=== PATIENT | female | born 1950 | race Caucasian/White ===

== ENCOUNTER → 2021-02-05 15:05 | Outpatient (BNVA) | payer MEDICARE, BC, SELFPAY | PROVIDERS: Family Provider Family Medicine; PCP Family Medicine; Visit Provider Registered Nurse | DX: M25.561 Pain in right knee (principal); M25.562 Pain in left knee; I10 Essential (primary) hypertension; E78.5 Hyperlipidemia, unspecified | CPT/HCPCS: 80053; 80061; 85025 ==

== ENCOUNTER → 2021-10-23 08:55 | Outpatient (BNVA) | payer MEDICARE, SELFPAY | PROVIDERS: Family Provider Family Medicine; PCP Family Medicine; Referring Provider Family Medicine; Visit Provider Surgery | DX: C20 Malignant neoplasm of rectum (principal) | CPT/HCPCS: 99203 ==

== ENCOUNTER 2021-12-05 08:06 | Day surgery (SDC) | payer MEDICARE, SELFPAY ==
[2021-12-04 14:17] VITALS: BMI 32.9
[2021-12-05 08:56] VITALS: BP 151/81; PULSE 86; RESP 18; TEMP 36.1; O2SAT 97
[2021-12-05] MEDS: sodium chloride 0.9% 1,000 ML 30 ML IV (09:36)
--- NOTE | 2021-12-05 09:36 | P.ANESASSM_ITS ---
Pre-Anesthetic Assessment Height/Weight: Height 1.57 m Weight 81.647 kg Temp Pulse Resp BP Pulse Ox 97.0 F L 86 18 151/81 97 12/05/21 08:56 12/05/21 08:56 12/05/21 08:56 12/05/21 08:56 12/05/21 08:56 Preop Diagnosis: diagnostic Operation Date: 12/05/21 09:30 Proposed Procedures p Colonoscopy 29520/colon cancer C20(Not Applicable) - Andrew Ramirez MD Familial anesthetic complications: none Was Beta Yamel taken within 24 hours: N/A Was Clonidine taken within 24 hours: N/A Last intake: Intake Last Liquid Date 12/04/21 Last Liquid Time 23:00 Last Solid Date 12/03/21 Last Solid Time 18:00 Social No alcohol and No tobacco Exam alert, oriented x 3, clear to auscultation bilaterally and regular rate & rhythm Airway Submandibular: within normal limits Cervical ROM: within normal limits Mallampati: Class II Dentition: chipped and partials Pulmonary None reported CV/HEM Hypertension None reported Hepatic None reported GI None reported Metabolic None reported Musc/skel None reported Neuropsych Anxiety Anesthetic Plan ASA status: 2 Anesthesia: Anesthesia Evaluation and MAC Other: I discussed with the patient risks, goals, and benefits of MAC and general anesthesia. We discussed spectrum of MAC anesthesia including conversion to general as well as possibility of recall of intraoperative stimuli including discomfort/pain. Patient agrees to proceed with MAC. Risk of > 500 ml blood loss (7ml/kg in children): No Medications/Allergies Home Medications Medication Instructions Recorded Confirmed Last Taken Type amlodipine 10 mg tablet 10 mg PO DAILY #90 tab 02/05/21 12/04/21 12/05/21 07:30 Rx citalopram 40 mg tablet 40 mg PO DAILY #90 tab 02/05/21 12/04/21 12/05/21 07:30 Rx solifenacin 10 mg tablet (Vesicare) 10 mg PO DAILY #90 tab 02/05/21 12/04/21 12/05/21 07:30 Rx Allergies Allergy/AdvReac Type Severity Reaction Status Date / Time adhesive tape Allergy Unknown Verified 12/05/21 08:56 hydrochlorothiazide Allergy Unknown Verified 12/05/21 08:56 [facility] Anesthesia Medical History Anxiety Colon polyps Hypertension Rectal cancer Status post chemoradiation Surgical History (Updated 12/05/21 @ 10:24 by Andrew Ramirez MD) History of colon resection History of colonoscopy (12/05/21) History of reversal of ileostomy Social History Smoking and tobacco status: never smoked Alcohol intake: never Adopted: No Caregiver/support person: No Lives independently: No Household members: spouse Current occupational status: employed Sexually active: Yes Current gender identity: Female Data Anesthesia Cardiac Studies: No Data to Display
--- NOTE | 2021-12-05 09:47 | W.PM.OPSFHP ---
Same Day Surgery H&P Indication for Procedure/HPI DATE OF PROCEDURE: December 05, 2021 CHIEF COMPLAINT/INDICATIONFOR SURGICAL PROCEDURE: Rectal cancer PREOP DIAGNOSIS: diagnostic PLANNED PROCEDURE: Operation Date: 12/05/21 09:30 Proposed Procedures p Colonoscopy 74623/colon cancer C20(Not Applicable) - Andrew Ramirez MD Medications/Allergies* Allergies/Adverse Reactions Allergy/AdvReac Type Severity Reaction Status Date / Time adhesive tape Allergy Unknown Verified 12/05/21 08:56 hydrochlorothiazide Allergy Unknown Verified 12/05/21 08:56 Current Medications: Generic Name Dose Route Start Last Admin Trade Name Freq PRN Reason Stop Dose Admin Sodium Chloride 1,000 mls @ 30 mls/hr 12/05/21 08:15 12/05/21 09:36 Sodium Chloride 0.9% IV 12/06/21 08:14 30 mls/hr .Q24H RENAN Administration Pertinent History/Comorbid Conditions* Medical History (Updated 10/23/21 @ 09:33 by Andrew Ramirez MD) Anxiety Colon polyps Hypertension Rectal cancer Status post chemoradiation Surgical History (Updated 10/23/21 @ 09:30 by Andrew Ramirez MD) History of colon resection History of colonoscopy History of reversal of ileostomy Social History Smoking and tobacco status: never smoked Alcohol intake: never Adopted: No Caregiver/support person: No Lives independently: No Household members: spouse Current occupational status: employed Sexually active: Yes Current gender identity: Female Pertinent Exam Findings alert, oriented x 3 and regular rate & rhythm Recommendations Surgery/Procedure today Coding Level of Care Code Acute [employer] Att[employer] for Edwina Matos
[2021-12-05 10:25] VITALS: BP 107/54; PULSE 78; RESP 14; TEMP 36.3; O2SAT 94
[2021-12-05 10:40] VITALS: BP 115/69; PULSE 74; RESP 16; O2SAT 95
[2021-12-05 10:54] VITALS: BP 116/71; PULSE 71; RESP 16; O2SAT 96
--- NOTE | 2021-12-05 14:18 | ANE.PACU2 ---
Inpatient post-anesthesia follow up: Airway intact: Yes Vital signs: Temperature 97.4 F Pulse Rate 71 Respiratory Rate 16 Blood Pressure 116/71 Pulse Oximetry 96 Oxygen Delivery Me thod Room Air Oxygen Flow Rate 3 Fraction of Inspir ed Oxygen Hydration adequate: Yes Nausea and vomiting: No Pain level: 1 Mental status: Baseline
== END 2021-12-05 11:00 | disposition home or self-care (01) ==
PROVIDERS: PCP Family Medicine; Visit Provider Surgery
PROC: 0DJD8ZZ Inspection of Lower Intestinal Tract, Via Natural or Artificial Opening Endoscopic (ICD-10-PCS; CPT 45378; principal; 2021-12-05 09:30)
DX: C20 Malignant neoplasm of rectum (principal); D12.0 Benign neoplasm of cecum; D12.4 Benign neoplasm of descending colon; F41.9 Anxiety disorder, unspecified; Z86.010 Personal history of colon polyps; I10 Essential (primary) hypertension; Z92.21 Personal history of antineoplastic chemotherapy; Z90.49 Acquired absence of other specified parts of digestive tract
CPT/HCPCS: 45379; 45380; 88305; J2704; J7030

== ENCOUNTER → 2021-12-18 11:33 | Outpatient (BNVA) | payer MEDICARE, SELFPAY | PROVIDERS: PCP Family Medicine; Visit Provider Surgery | DX: Z09 Encounter for follow-up examination after completed treatment for conditions other than malignant neoplasm (principal) | CPT/HCPCS: 99212 ==